=== PATIENT | female | born 1990 | race Caucasian/White ===

== ENCOUNTER 2021-01-02 16:49 | Emergency (ER) | payer BC ==
[2021-01-02 17:23] LABS: Appearance,Urine Clear (Clear); Bilirubin,Urine Negative (Negative); Blood,Urine Negative (Negative); Color,Urine Colorless; Glucose,Urine (UA) Negative (Negative); Ketones,Urine Negative (Negative); Leukocyte Esterase,Urine Negative (Negative); Nitrite,Urine Negative (Negative); PH, Urine 6.5 (5.0-8.0); Protein,Urine Negative (Negative); Specific Gravity,Urine 1.003 (1.001-1.035); Urobilinogen,Urine <2.0 mg/dL (<2.0)
[2021-01-02 17:54] LABS: Basophils % (A) 0 %; Eosinophils # (A) 0.7 k/uL (0-0.7); Eosinophils % (A) 7 %; HCT 40.1 % (34.0-46.0); HGB 14.3 gm/dL (11.4-16.0); Lymphocytes # (A) 2.2 k/uL (1.0-4.8); Lymphocytes % (A) 22 %; MCH 30.2 pg (25.0-35.0); MCHC 35.6 g/dL (31.0-37.0); MCV 84.9 fL (80.0-100.0); Mean Platelet Volume 7.2; Monocytes # (A) 0.5 k/uL (0-1.0); Monocytes % (A) 5 %; Neutrophils # (A) 6.5 k/uL (1.3-7.7); Neutrophils % (A) 65 %; Platelet Count 358 k/uL (150-450); RBC 4.72 m/uL (3.80-5.40); RDW 12.2 % (11.5-15.5)
--- NOTE | 2021-01-02 18:02 | US ---
EXAMINATION TYPE: US OB >= 14 wk fetus DATE OF EXAM: 01/02/2021 COMPARISON: None CLINICAL HISTORY: pain vaginal discharge/bleeding TECHNIQUE: Transabdominal (TA) GESTATIONAL AGE / DATING Physician Established: Not yet established Dates by LMP: (17 weeks/0 days) EDC: 06/12/21 Dates by First Scan: No previous this is first scan Dates by Current Scan: (16 weeks/3 days) EDC: 06/16/21 SURVEY IUP: Single PLACENTA: Posterior PREVIA: No Previa GONZALES: 11.5 cm Normal CERVICAL LENGTH (transabdominal: norm > 3.0cm): 3.6 cm BIOMETRY PRESENTATION: Breech LIE: Transverse with head maternal RT BPD: 3.3 cm 16 weeks / 3 days HC: 12.5 cm 16 weeks / 2 days AC: 9.9 cm 16 weeks / 0 days FL: 2.2 cm 16 weeks / 3 days ESTIMATED WEIGHT IN GRAMS: 149 grams ESTIMATED WEIGHT IN LBS/OZ: 0 lbs. 5 oz. WEIGHT PERCENTAGE BASED ON ESTABLISHED DATES: 8.2% HC/AC: 1.26 Normal FL/AC: 21.9 Normal HEART RATE: 154 bpm RHYTHM: Normal MATERNAL WALL MEASUREMENT: 4.2 cm from skin to anterior uterine wall (if exam limited due to body hab itus). IMPRESSION: Single viable intrauterine as described above.
--- NOTE | 2021-01-02 18:10 | ED ---
Female Urogenital HPI - General Chief complaint: Vaginal Bleeding Stated complaint: 17wks preg/bleeding Time Seen by Provider: 01/02/21 17:02 Source: patient Mode of arrival: ambulatory Limitations: no limitations - History of Present Illness Initial comments: 30-year-old female presenting to the emergency department today for chief complaint of vaginal bleeding in . Patient states she was just having normal sex with her when she developed vaginal bleeding after. She states it has now stopped but it made her very scared. Patient denies any cramping or abdominal pain. Patient denies any heavy bleeding, states it was a small amount of bright red blood. pt denies additional complaints. upon arrival pt appears anxious tearful. bedside US revealed movement/HR present. Last Menstrual Period: 09/05/20 - Related Data Allergies Allergy/AdvReac Type Severity Reaction Status Date / Time No Known Allergies Allergy Verified 01/02/21 17:00 Review of Systems ROS Statement: Those systems with pertinent positive or pertinent negative responses have been documented in the HPI. ROS Other: All systems not noted in ROS Statement are negative. Past Medical History Past Medical History: No Reported History History of Any Multi-Drug Resistant Organisms: None Reported Past Surgical History: Section Additional Past Surgical History / Comment(s): jaw surgery Past Psychological History: No Psychological Hx Reported Smoking Status: Never smoker Past Alcohol Use History: None Reported Past Drug Use History: None Reported General Exam - General Exam Comments Initial Comments: General: The patient is awake and alert, in no distress Eye: Pupils are equal, round and reactive to light, extra-ocular movements are intact. No nystagmus. There is normal conjunctiva bilaterally. No signs of icterus. Ears, nose, mouth and throat: There are moist mucous membranes and no oral lesions. Neck: The neck is supple, there is no tenderness or JVD. Cardiovascular: There is a regular rate and rhythm. No murmur, rub or gallop is appreciated. Respiratory: Lungs are clear to auscultation, respirations are non-labored, breath sounds are equal. No wheezes, stridor, rales, or rhonchi. Gastrointestinal: Soft, non-tender abdomen without masses or organomegaly noted. There is no rebound or guarding present. Refused: refused pelvic Musculoskeletal: Normal ROM, no tenderness. Strength 5/5. Sensation intact. Radial and Dp pulses equal bilaterally 2+. Neurological: A&O x 3. CN II-XII intact grossly, There are no obvious motor or sensory deficits. Coordination appears grossly intact. Speech is normal. Skin: Skin is warm and dry and no rashes or lesions are noted. Psychiatric: Cooperative, appropriate mood & affect, normal judgment. Limitations: no limitations Course Vital Signs 01/02/21 01/02/21 01/02/21 16:57 18:50 19:44 Temperature 98.1 F 98.2 F 98.0 F Pulse Rate 104 H 103 H 98 Respiratory 18 16 16 Rate Blood Pressure 145/75 133/90 134/73 O2 Sat by Pulse 100 100 98 Oximetry Medical Decision Making - Medical Decision Making Labs stable. US no abnormality. Pt B-. given Rhogam. Patient discharged with pelvic rest/lifting instruction and OBGYN f/u. pt agreeable. discharged dap pearing well. Refused pelvic. States bleeding has stopped Dr Soto agreeable to care plan and discharge. - Lab Data Result diagrams: 01/02/21 17:37 01/02/21 17:37 Lab Results 01/02/21 01/02/21 01/02/21 Range/Units 17:18 17:37 17:37 WBC 10.0 (3.8-10.6) k/uL RBC 4.72 (3.80-5.40) m/uL Hgb 14.3 (11.4-16.0) gm/dL Hct 40.1 (34.0-46.0) % MCV 84.9 (80.0-100.0) fL MCH 30.2 (25.0-35.0) pg MCHC 35.6 (31.0-37.0) g/dL RDW 12.2 (11.5-15.5) % Plt Count 358 (150-450) k/uL MPV 7.2 Neutrophils % 65 % Lymphocytes % 22 % Monocytes % 5 % Eosinophils % 7 % Basophils % 0 % Neutrophils # 6.5 (1.3-7.7) k/uL Lymphocytes # 2.2 (1.0-4.8) k/uL Monocytes # 0.5 (0-1.0) k/uL Eosinophils # 0.7 (0-0.7) k/uL Basophils # 0.0 (0-0.2) k/uL Sodium 137 (137-145) mmol/L Potassium 3.4 L (3.5-5.1) mmol/L Chloride 103 (98-107) mmol/L Carbon Dioxide 24 (22-30) mmol/L Anion Gap 10 mmol/L BUN 10 (7-17) mg/dL Creatinine 0.50 L (0.52-1.04) mg/dL Est GFR (CKD-EPI)AfAm >90 (>60 ml/min/1.73 sqM) Est GFR (CKD-EPI)NonAf >90 (>60 ml/min/1.73 sqM) Glucose 116 H (74-99) mg/dL Calcium 10.4 H (8.4-10.2) mg/dL Total Bilirubin 0.2 (0.2-1.3) mg/dL AST 20 (14-36) U/L ALT 17 (4-34) U/L Alkaline Phosphatase 58 (38-126) U/L Total Protein 7.8 (6.3-8.2) g/dL Albumin 4.3 (3.5-5.0) g/dL Urine Color Colorless Urine Appearance Clear (Clear) Urine pH 6.5 (5.0-8.0) Ur Specific [place] 1.003 (1.001-1.035) Urine Protein Negative (Negative) Urine Glucose (UA) Negative (Negative) Urine Ketones Negative (Negative) Urine Blood Negative (Negative) Urine Nitrite Negative (Negative) Urine Bilirubin Negative (Negative) Urine Urobilinogen <2.0 (<2.0) mg/dL Ur Leukocyte Esterase Negative (Negative) Blood Type Blood Type Confirm Blood Type Recheck Bld Type Recheck Status Antibody Screen Spec Expiration Date 01/02/21 01/02/21 Range/Units 17:40 17:45 WBC (3.8-10.6) k/uL RBC (3.80-5.40) m/uL Hgb (11.4-16.0) gm/dL Hct (34.0-46.0) % MCV (80.0-100.0) fL MCH (25.0-35.0) pg MCHC (31.0-37.0) g/dL RDW (11.5-15.5) % Plt Count (150-450) k/uL MPV Neutrophils % % Lymphocytes % % Monocytes % % Eosinophils % % Basophils % % Neutrophils # (1.3-7.7) k/uL Lymphocytes # (1.0-4.8) k/uL Monocytes # (0-1.0) k/uL Eosinophils # (0-0.7) k/uL Basophils # (0-0.2) k/uL Sodium (137-145) mmol/L Potassium (3.5-5.1) mmol/L Chloride (98-107) mmol/L Carbon Dioxide (22-30) mmol/L Anion Gap mmol/L BUN (7-17) mg/dL Creatinine (0.52-1.04) mg/dL Est GFR (CKD-EPI)AfAm (>60 ml/min/1.73 sqM) Est GFR (CKD-EPI)NonAf (>60 ml/min/1.73 sqM) Glucose (74-99) mg/dL Calcium (8.4-10.2) mg/dL Total Bilirubin (0.2-1.3) mg/dL AST (14-36) U/L ALT (4-34) U/L Alkaline Phosphatase (38-126) U/L Total Protein (6.3-8.2) g/dL Albumin (3.5-5.0) g/dL Urine Color Urine Appearance (Clear) Urine pH (5.0-8.0) Ur Specific [place] (1.001-1.035) Urine Protein (Negative) Urine Glucose (UA) (Negative) Urine Ketones (Negative) Urine Blood (Negative) Urine Nitrite (Negative) Urine Bilirubin (Negative) Urine Urobilinogen (<2.0) mg/dL Ur Leukocyte Esterase (Negative) Blood Type B Negative Blood Type Confirm B Negative Blood Type Recheck No Previous Record Bld Type Recheck Status CABO Indicated Antibody Screen NEGATIVE Spec Expiration Date 01/05/2021 - 2339 Disposition Clinical Impression: Vaginal bleeding during Disposition: HOME SELF-CARE Condition: Good Instructions (If sedation given, give patient instructions): Threatened Miscarriage (ED) Additional Instructions: Please use medication as discussed. Please follow-up with OBGYN this week. PELVIC REST-no sex, no lifting < 10lbs. Please return to emergency room if the symptoms increase or worsen or for any other concerns. Is patient prescribed a controlled substance at d/c from ED?: No Referrals: None,Stated [Primary Care Provider] - 1-2 days Time of Disposition: 18:27
[2021-01-02 18:11] LABS: ALT 17 U/L (4-34); AST 20 U/L (14-36); African American GFR (CKD) >90 (>60 ml/min/1.73 sqM); Albumin 4.3 g/dL (3.5-5.0); Alkaline Phosphatase 58 U/L (38-126); Anion Gap 10 mmol/L; Blood Urea Nitrogen 10 mg/dL (7-17); Calcium 10.4 mg/dL (8.4-10.2); Carbon Dioxide 24 mmol/L (22-30); Chloride 103 mmol/L (98-107); Glucose 116 mg/dL (74-99); Non-African American GFR(CKD) >90 (>60 ml/min/1.73 sqM); Potassium 3.4 mmol/L (3.5-5.1); Sodium 137 mmol/L (137-145); Total Bilirubin 0.2 mg/dL (0.2-1.3); Total Protein 7.8 g/dL (6.3-8.2)
[2021-01-02 18:51] VITALS: RESP 16
[2021-01-02] MEDS ORDERED: Rhogam IMMUNE GLOBULIN 1,500 UNIT/1 ML IM ONE (18:57)
[2021-01-02 19:45] VITALS: BP 134/73; PULSE 98; TEMP 98
== END 2021-01-02 19:44 | disposition home or self-care (01) ==
LOC: EC 16:49
DX: O20.9 Hemorrhage in early pregnancy, unspecified (principal); Z3A.16 16 weeks gestation of pregnancy
CPT/HCPCS: 36415; 86900; 86901; 80053; 85025; 86850; 81003; 76805; 99284; 96372; J2791

== ENCOUNTER 2021-05-09 09:25 | Outpatient (CLI) | payer BC ==
[2021-05-09 11:28] VITALS: BP 114/77; PULSE 108; RESP 16; TEMP 98.2
--- NOTE | 2021-06-19 13:16 | P.MSEPDOC ---
Presenting Problems - Arrival Data Date of Arrival on Unit: 05/09/21 Time of Arrival on Unit: 09:29 Mode of Transport: Ambulatory - Complaint OB-Reason for Admission/Chief Complaint: Other Comment: pt arrived c/o some vaginal bleeding this morning. pt states she had intercourse last night and had some bleeding . pt states its a small amt when she wipes and more pinkish and dark brown. pt denies any leaking of fluid Medical History - Information : 2 Para: 1 Term: 1 : 0 Abortions: Spontaneous or Elective: 0 Number of Living Children: 1 - Gestational Age Gestational Age by SARA (wks/days): 35 Weeks and 0 Days - History Complications: Prior Review of Systems - Review of Systems Constitutional: No problems Breast: No problems ENT: No problems Cardiovascular: No problems Respiratory: No problems Gastrointestinal: No problems Genitourinary: No problems Musculoskeletal: No problems Neurological: No problems Skin: No problems Vital Signs - Temperature Temperature: 98.2 F Temperature Source: Oral - Pulse Right Brachial Pulse Rate: 108 Pulse Assessment Method: Automatic Cuff - Respirations Respiratory Rate: 16 Oxygen Delivery Method: Room Air O2 Sat by Pulse Oximetry: 97 - Blood Pressure Right Arm Blood Pressure: 114/77 Blood Pressure Mean: 89 Blood Pressure Source: Automatic Cuff Medical Screen Scoring - Cervical Exam Membranes: Intact - Uterine Contractions Frequency From (mins): 0 Frequency To (mins): 0 - Assessment - Baby A Baseline FHR: 130 Heart Rate - NICHD Category: Category I (Normal) NST: Reactive Physician Notification - Physician Notified Physician Notified Date: 05/09/21 Physician Notified Time: 11:00 Physician: Dr Krause New Order Received: Yes - Notification Comment Comment: may discharge to home with instructions and have pt keep scheduled appointment on 05/12/2021 and have pt on pelvic rest Maternal Triage Index - Non-Urgent/Priority 4 Non-Urgent Priority 4: Yes Criteria Met for Priority 4: pt 35 weeks hx of c/section . arrived c/o some bleeding affter having intercourse last night. pt arrived with brownish discharge and no active bleeding. vitals wnl and reactive NST. cervix closed Disposition - Disposition OB Disposition: Transfer to other dept./facility Discharge Date: 05/09/21 Discharge Time: 11:10 I agree with the RN Medical Screening Exam: Yes Case reviewed; plan agreed upon as documented in EMR&OBIX.: Yes Diagnosis: RELATED CONDITIONS, UNSPECIFIED, THIRD TRIMESTER
== END 2021-05-09 11:10 | disposition home or self-care (01) ==
LOC: FBPOP 09:25
PROVIDERS: ATTEND Obstetrics & Gynecology Obstetrics
DX: O46.93 Antepartum hemorrhage, unspecified, third trimester (principal); Z3A.35 35 weeks gestation of pregnancy
CPT/HCPCS: 59025; 99213

== ENCOUNTER 2021-05-17 10:54 | Outpatient (CLI) | payer BC ==
[2021-05-17 12:31] VITALS: BP 139/81; PULSE 103; RESP 18; TEMP 97.5
--- NOTE | 2021-07-10 09:44 | P.MSEPDOC ---
Presenting Problems - Arrival Data Date of Arrival on Unit: 05/17/21 Time of Arrival on Unit: 10:54 Mode of Transport: Ambulatory - Complaint OB-Reason for Admission/Chief Complaint: Possible Onset of Labor Comment: irregular contractions since last night and small blood clot Medical History - Information : 2 Para: 1 Term: 1 : 0 Abortions: Spontaneous or Elective: 0 Number of Living Children: 1 - Gestational Age Gestational Age by SARA (wks/days): 36 Weeks and 1 Days Review of Systems - Review of Systems Constitutional: No problems Breast: No problems ENT: No problems Cardiovascular: No problems Respiratory: No problems Gastrointestinal: No problems Genitourinary: No problems Musculoskeletal: No problems Neurological: No problems Skin: No problems Vital Signs - Temperature Temperature: 97.5 F Temperature Source: Temporal Artery Scan - Pulse Right Pulse Oximetery Pulse Rate: 103 Pulse Assessment Method: Pulse Oximetry - Respirations Respiratory Rate: 18 Oxygen Delivery Method: Room Air O2 Sat by Pulse Oximetry: 96 - Blood Pressure Right Arm Blood Pressure: 139/81 Blood Pressure Mean: 100 Blood Pressure Source: Automatic Cuff Medical Screen Scoring - Cervical Exam Dilation (cm): 1 Effacement (%): 0 Station: -3 Membranes: Intact - Assessment - Baby A Baseline FHR: 125 Heart Rate - NICHD Category: Category I (Normal) NST: Reactive Physician Notification - Physician Notified Physician Notified Date: 05/17/21 Physician Notified Time: 11:43 Physician: Dr Krause New Order Received: Yes - Notification Comment Comment: order to recheck pt cervix after one hour, if no change, pt may be discharged Maternal Triage Index - Maternal Triage Index Presenting for scheduled procedure w/no complaint: No - Stat/Priority 1 Stat Priority 1: No - Urgent/Priority 2 Urgent Priority 2: No - Prompt/Priority 3 Prompt Priority 3: No - Non-Urgent/Priority 4 Non-Urgent Priority 4: Yes Criteria Met for Priority 4: irregular contractions, 36 1/7, repeat CS Disposition - Disposition OB Disposition: Discharge to home Discharge Date: 05/17/21 Discharge Time: 12:15 I agree with the RN Medical Screening Exam: Yes Physician's MSE Comment: Patient was not seen or examined by myself. Case reviewed; plan agreed upon as documented in EMR&OBIX.: Yes Diagnosis: FALSE LABOR BEFORE 37 COMPLETED WEEKS OF GEST, THIRD TRI
== END 2021-05-17 12:15 | disposition home or self-care (01) ==
LOC: FBPOP 10:54
PROVIDERS: ATTEND Obstetrics & Gynecology Obstetrics
DX: O47.03 False labor before 37 completed weeks of gestation, third trimester (principal); Z3A.36 36 weeks gestation of pregnancy
CPT/HCPCS: 59025; 99213

== ENCOUNTER 2021-05-18 10:00 | Inpatient (IN) | payer BC ==
[2021-05-18] MEDS ORDERED: CITRIC ACID-SODIUM CITRATE 15 ML CUP PO ONE (10:32)
[2021-05-18 10:49] LABS: Basophils % (A) 0 %; Eosinophils # (A) 0.4 k/uL (0-0.7); Eosinophils % (A) 4 %; HCT 37.8 % (34.0-46.0); HGB 12.8 gm/dL (11.4-16.0); Lymphocytes # (A) 1.2 k/uL (1.0-4.8); Lymphocytes % (A) 12 %; MCHC 33.9 g/dL (31.0-37.0); MCV 88.5 fL (80.0-100.0); Mean Platelet Volume 8.1; Monocytes # (A) 0.4 k/uL (0-1.0); Monocytes % (A) 4 %; Neutrophils # (A) 7.9 k/uL (1.3-7.7); Neutrophils % (A) 79 %; Platelet Count 335 k/uL (150-450); RBC 4.27 m/uL (3.80-5.40); RDW 12.8 % (11.5-15.5)
[2021-05-18] MEDS: LACTATED RINGERS 1,000 ML IV ONE ×2 (10:59→12:02)
[2021-05-18] MEDS ORDERED: OXYTOCIN 10 UNIT/ML 1 ML VIAL ONE (12:20)
[2021-05-18] MEDS ORDERED: OXYTOCIN 30 UNITS/500 ML NS BAG IV ONE (12:20)
[2021-05-18] MEDS ORDERED: ePHEDrine SULFATE/0.9% NACL/PF 50 MG/5 ML SYRINGE IV ONE (12:20)
[2021-05-18] MEDS ORDERED: PHENYLEPHRINE-0.9% NACL SYG 1,000 MCG/10 ML SYRINGE ONE (12:20)
[2021-05-18] MEDS ORDERED: MORPHINE SULFATE (PF) 0.3 MG/0.3 ML SYR ONE (12:20)
[2021-05-18] MEDS ORDERED: ONDANSETRON 4 MG/2 ML VIAL ONE (12:20)
[2021-05-18] MEDS ORDERED: NALBUPHINE 10 MG/ML (1 ML AMP) ONE (12:20)
[2021-05-18] MEDS ORDERED: diphenhydrAMINE 50 MG/ML 1 ML VIAL IVP PRN ×2 (13:20)
[2021-05-18] MEDS ORDERED: METOCLOPRAMIDE 5 MG/ML 2 ML VIAL IVP PRN (13:20)
[2021-05-18] MEDS ORDERED: ONDANSETRON 4 MG/2 ML VIAL IVP PRN (13:20)
[2021-05-18] MEDS ORDERED: OXYTOCIN 10 UNIT/ML 1 ML VIAL IM ONE (13:20)
[2021-05-18] MEDS ORDERED: ZOLPIDEM 5 MG TAB PO PRN (13:20)
[2021-05-18] MEDS ORDERED: SIMETHICONE 80 MG CHEWABLE PO PRN (13:20)
[2021-05-18] MEDS ORDERED: NALOXONE 0.4 MG/ML 1 ML VIAL IV PRN (13:20)
[2021-05-18] MEDS ORDERED: diphenhydrAMINE 25 MG CAP PO PRN (13:20)
[2021-05-18] MEDS ORDERED: diphenhydrAMINE 50 MG CAP PO PRN (13:20)
--- NOTE | 2021-05-18 13:25 | P.HPOB ---
History of Present Illness H&P Date: 05/18/21 Chief Complaint: IUP at 36 and 2/7, labor, history of 1 This is a 22-year-old at 36-2/7 weeks, estimated due date 06/13. Patient presents to the office for routine visit. Patient states she was seen on labor and delivery yesterday with complaints of irregular contractions was noted to be closed. Patient states she contracted through the evening and was up most of the night jose every 10-15 minutes. On cervical exam she was 4/70/-3 station, fetus was noted to be high in the pelvis. Patient was tearful with contractions. Patient has been receiving routine care which is been essentially uncomplicated, her last was for macrosomia. On bloodwork this patient is noted to be negative, rubella immune, hepatitis B surface antigen negative, HIV negative, RPR nonreactive, group beta strep cultures are positive. Review of Systems Constitutional: Denies chills, Denies fatigue, Denies fever Ears, nose, mouth and throat: Denies headache Cardiovascular: Reports leg edema Gastrointestinal: Denies constipation, Denies diarrhea, Denies nausea, Denies vomiting Genitourinary: Reports Past Medical History Past Medical History: No Reported History History of Any Multi-Drug Resistant Organisms: None Reported Past Surgical History: Section Additional Past Surgical History / Comment(s): jaw surgery ,screws in lower jaw Past Anesthesia/Blood Transfusion Reactions: Previous Problems w/ Anesthesia Additional Past Anesthesia/Blood Transfusion Reaction / Comment(s): "difficulty waking up" was in ICU for a couple days as a child. Past Psychological History: No Psychological Hx Reported Smoking Status: Never smoker Past Alcohol Use History: None Reported Past Drug Use History: None Reported - Past Family History Father Family Medical History: No Reported History Medications and Allergies Home Medications Medication Instructions Recorded Confirmed Type Pnv No.95/Ferrous Fum/Folic AC 1 tab DAILY 05/09/21 05/18/21 History [ Multivitamin Tablet] Allergies Allergy/AdvReac Type Severity Reaction Status Date / Time No Known Allergies Allergy Verified 05/18/21 10:29 Exam Osteopathic Statement: *. No significant issues noted on an osteopathic structural exam other than those noted in the History and Physical/Consult. 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 Cervical exam is deferred as she was examined in the office and found to be 4 cm after being closed yesterday. heart tones were noted to be category 1 and she is jose irregularly. Results Result Diagrams: 05/18/21 10:30 Abnormal Lab Results - Last 24 Hours (Table) 05/18/21 Range/Units 10:30 Neutrophils # 7.9 H (1.3-7.7) k/uL Assessment and Plan (1) 36 to 37 weeks gestation of Current Visit: Yes Status: Acute Code(s): [id number] - SNOMED Code(s): 171793470 (2) H/O section Current Visit: Yes Status: Acute Code(s): Z98.891 - HISTORY OF UTERINE SCAR FROM PREVIOUS SURGERY SNOMED Code(s): 759839195 (3) Positive GBS test Current Visit: Yes Status: Acute Code(s): B95.1 - STREPTOCOCCUS, GROUP B, CAUSING DISEASES [facility]SD [facility] SNOMED Code(s): 628557636 Plan: This is a 22-year-old at 36-2/7 weeks that presents for repeat section secondary to labor. Patient is admitted and will be taken back to the operating suite for repeat section. Procedures reviewed questions are answered. Anesthesia is notified.
[2021-05-18] MEDS ORDERED: IBUPROFEN IV 800 MG in SODIUM CHLORIDE 0.9% 250 ML IV SCH (13:30)
[2021-05-18] MEDS ORDERED: OXYTOCIN 30 UNITS/500 ML NS 30 UNIT in SALINE 1 500ML.BAG IV SCH (13:30)
[2021-05-18] MEDS: ACETAMINOPHEN IV (For NPO) 1,000 MG in EMPTY BAG 1 BAG IVPB SCH ×2 (14:05→22:25)
[2021-05-18] MEDS: LACTATED RINGERS 1,000 ML IV SCH (16:44)
[2021-05-18] MEDS: SENNOSIDES-DOCUSATE SODIUM 1 EACH TAB PO SCH (22:13)
[2021-05-18] MEDS ORDERED: Rhogam IMMUNE GLOBULIN 1,500 UNIT/1 ML IM ONE (22:14)
[2021-05-19] MEDS: LACTATED RINGERS 1,000 ML IV SCH (02:17)
[2021-05-19] MEDS: IBUPROFEN 600 MG TAB PO SCH ×4 (04:12→18:41)
[2021-05-19] MEDS: SENNOSIDES-DOCUSATE SODIUM 1 EACH TAB PO SCH ×2 (07:44→20:30)
--- NOTE | 2021-05-19 08:33 | P.PN ---
Progress Note - Text Date: 05/19/2021 Time: 07:12 The patient is status post section Vital signs stable VAS: 0-10 Patient has no complaints of pain. The patient incurred some minimal itching yesterday, this itching is now subsiding. Pain meds to be managed by service.
[2021-05-19 09:28] LABS: Basophils % (A) 0 %; Eosinophils # (A) 0.4 k/uL (0-0.7); Eosinophils % (A) 4 %; HCT 35.8 % (34.0-46.0); HGB 11.9 gm/dL (11.4-16.0); Lymphocytes # (A) 1.1 k/uL (1.0-4.8); Lymphocytes % (A) 11 %; MCHC 33.2 g/dL (31.0-37.0); MCV 90.3 fL (80.0-100.0); Mean Platelet Volume 8.4; Monocytes # (A) 0.4 k/uL (0-1.0); Monocytes % (A) 4 %; Neutrophils # (A) 8.6 k/uL (1.3-7.7); Neutrophils % (A) 81 %; Platelet Count 284 k/uL (150-450); RBC 3.97 m/uL (3.80-5.40); WBC 10.7 k/uL (3.8-10.6)
[2021-05-19] MEDS: ACETAMINOPHEN TAB 500 MG TAB PO PRN ×2 (09:55→16:30)
--- NOTE | 2021-05-19 13:10 | P.PNOBGPC ---
Subjective - Subjective Principal diagnosis: Postop day 1 repeat section Interval history: Patient is doing well overall, patient is tearful as her remains in the nursery. Patient is ambulating and voiding without difficulty. She states her pain is well-controlled. Her lochia is minimal. She is pumping. Patient reports: Reports appetite normal, Reports voiding normally, Reports pain well controlled, Reports ambulating normally : doing well (In the nursery, on IV fluids) Objective - Vital Signs Latest vital signs: Vital Signs Temp Pulse Resp BP Pulse Ox 05/19/21 11:37 98.3 F 73 18 133/72 05/19/21 08:10 133/83 05/19/21 08:00 97.4 F L 85 18 143/92 100 05/19/21 04:00 97.8 F 93 16 115/66 99 05/19/21 00:00 97.9 F 68 16 126/76 99 05/18/21 20:00 98.0 F 74 16 132/84 99 05/18/21 16:00 97 F L 80 16 131/84 100 05/18/21 15:23 96.2 F L 66 16 127/71 100 05/18/21 14:53 76 16 131/84 100 05/18/21 14:23 70 16 135/67 97 05/18/21 14:08 90 16 126/75 98 05/18/21 13:53 92 16 126/71 99 05/18/21 13:38 83 16 123/68 99 05/18/21 13:23 96.4 F L 77 16 127/68 99 Intake and Output 05/18/21 05/19/21 05/19/21 22:59 06:59 14:59 Output Total 1240 475 Balance -1240 -475 Output: Urine 1240 475 Uretheral (Modi) 400 Other: Voiding Method Toilet # Voids 1 2 1 - Exam Extremities: Present: normal, edema Incision: Present: normal, dry, intact Uterus: Present: normal, firm - Labs Labs: Abnormal Lab Results - Last 24 Hours (Table) 05/19/21 Range/Units 08:44 WBC 10.7 H (3.8-10.6) k/uL Neutrophils # 8.6 H (1.3-7.7) k/uL Assessment and Plan (1) 36 to 37 weeks gestation of Current Visit: Yes Status: Acute Code(s): [id number] - SNOMED Code(s): 850772829 (2) H/O section Current Visit: Yes Status: Acute Code(s): Z98.891 - HISTORY OF UTERINE SCAR FROM PREVIOUS SURGERY SNOMED Code(s): 395993090 (3) Positive GBS test Current Visit: Yes Status: Acute Code(s): B95.1 - STREPTOCOCCUS, GROUP B, [facility] SNOM[facility] Code(s): 528482227 (4) S/P section Current Visit: Yes Status: Acute Code(s): Z98.891 - HISTORY OF UTERINE SCAR FROM PREVIOUS SURGERY SNOMED Code(s): 693356215 Plan: Patient is doing well postoperatively. We'll plan to continue routine postoperative care. I anticipate this patient will want to stay until infant is discharged
[2021-05-20] MEDS: IBUPROFEN 600 MG TAB PO SCH ×4 (00:19→19:47)
[2021-05-20] MEDS: SENNOSIDES-DOCUSATE SODIUM 1 EACH TAB PO SCH ×2 (08:13→19:47)
--- NOTE | 2021-05-20 11:02 | P.PNOBGPC ---
Subjective - Subjective Principal diagnosis: POD 2 LTCS Interval history: Patient is doing well postoperatively, pain is well controlled. she is ambulating and voiding without difficulty. she is tolerating a regular diet without nausea or vomitting. baby remain in the nursery off oxygen. Patient reports: Reports appetite normal, Reports voiding normally, Reports pain well controlled, Reports ambulating normally [place]: doing well Objective - Vital Signs Latest vital signs: Vital Signs Temp Pulse Resp BP Pulse Ox 05/20/21 08:00 98.3 F 84 16 117/83 05/20/21 00:00 98.3 F 79 16 122/65 99 05/19/21 16:00 96.6 F L 85 18 114/69 97 05/19/21 11:37 98.3 F 73 18 133/72 Intake and Output 05/19/21 05/20/21 05/20/21 22:59 06:59 14:59 Other: # Voids 2 1 - Exam Extremities: Present: normal, edema Abdomen: Present: normal appearance, soft Incision: Present: normal, dry Uterus: Present: normal, firm Assessment and Plan (1) 36 to 37 weeks gestation of Current Visit: Yes Status: Acute Code(s): [id number] - SNOMED Code(s): 977813625 (2) H/O section Current Visit: Yes Status: Acute Code(s): Z98.891 - HISTORY OF UTERINE SCAR FROM PREVIOUS SURGERY SNOMED Code(s): 225425869 (3) Positive GBS test Current Visit: Yes Status: Acute Code(s): B95.1 - STREPTOCOCCUS, GROUP B, CAUSING DISEASES [facility]SD [facility] SNOMED Code(s): 284577179 (4) S/P section Current Visit: Yes Status: Acute Code(s): Z98.891 - HISTORY OF UTERINE SCAR FROM PREVIOUS SURGERY SNOMED Code(s): 301626970 Plan: Patient is doing well postoperatively. Continue postoperative care.
[2021-05-20] MEDS: ACETAMINOPHEN TAB 500 MG TAB PO PRN (16:03)
[2021-05-21] MEDS: ACETAMINOPHEN TAB 500 MG TAB PO PRN ×3 (00:23→18:49)
[2021-05-21] MEDS: IBUPROFEN 600 MG TAB PO SCH ×5 (04:50→22:06)
--- NOTE | 2021-05-21 10:37 | P.PNOBGPC ---
Subjective - Subjective Principal diagnosis: Postop day 3, repeat section Interval history: Patient is doing well. She a billing and voiding without difficulty concerns. patient remains in the hospital as her infant is in the nursery working on feeding issues. Patient reports: Reports appetite normal, Reports voiding normally, Reports pain well controlled, Reports ambulating normally [place]: doing well (In the nursery) Objective - Vital Signs Latest vital signs: Vital Signs Temp Pulse Resp BP 05/21/21 08:00 97.9 F 82 16 132/80 05/21/21 00:00 98.5 F 80 16 127/79 05/20/21 20:00 98.6 F 80 16 138/85 05/20/21 16:00 98.4 F 78 16 115/76 Intake and Output 05/20/21 05/21/21 05/21/21 22:59 06:59 14:59 Other: # Voids 2 1 # Bowel Movements 3 - Exam Extremities: Present: normal, edema Abdomen: Present: normal appearance Incision: Present: normal, dry, intact Uterus: Present: normal Assessment and Plan (1) 36 to 37 weeks gestation of Current Visit: Yes Status: Acute Code(s): [id number] - SNOMED Code(s): 977625091 (2) H/O section Current Visit: Yes Status: Acute Code(s): Z98.891 - HISTORY OF UTERINE SCAR FROM PREVIOUS SURGERY SNOMED Code(s): 978145674 (3) Positive GBS test Current Visit: Yes Status: Acute Code(s): B95.1 - STREPTOCOCCUS, GROUP B, CAUSING DISEASES CLASSD [facility] SNOMED Code(s): 771804222 (4) S/P section Current Visit: Yes Status: Acute Code(s): Z98.891 - HISTORY OF UTERINE SCAR FROM PREVIOUS SURGERY SNOMED Code(s): 334847379 Plan: Patient continues to do well postoperatively, no concerns. Continue current plan.
[2021-05-21] MEDS: SENNOSIDES-DOCUSATE SODIUM 1 EACH TAB PO SCH ×2 (15:39→20:59)
[2021-05-22] MEDS: ACETAMINOPHEN TAB 500 MG TAB PO PRN ×3 (02:52→18:51)
[2021-05-22] MEDS: IBUPROFEN 600 MG TAB PO SCH ×2 (04:54→13:30)
[2021-05-22 08:23] VITALS: RESP 16
--- NOTE | 2021-05-22 11:10 | P.DS ---
Providers Date of admission: 05/18/21 10:00 Expected date of discharge: 05/22/21 Attending physician: Angy Krause Primary care physician: Stated None - Discharge Diagnosis(es) (1) S/P section Current Visit: Yes Status: Acute Hospital Course: The patient is a 22-year-old 2 para 1001 admitted at 36-2/7 weeks by good dating parameters. She presents to the office for routine visit with complaints of recent contractions and was found to have a cervical exam of 4 synovators of dilation, 70% effacement with vertex in presentation at -3 station. She was sent to labor and delivery with the diagnosis of labor and a history of her previous section for which the plan was for repeat. She was taken to the operating room where she was delivered of a viable 7 lbs. 4 oz. baby boy with Apgars of 5 at 1 minute 7 at 5 minutes and 7 at 10 minutes. Delivery of the head was somewhat difficult secondary to the head not being engaged in the pelvis with a relatively thick lower uterine segment despite labor. Her post operative and course has been unremarkable vital signs remaining stable and her temperature has been afebrile throughout. Her infant remains in the special care nursery for ongoing treatment primarily for issues of prematurity. The patient therefore remained in the hospital until postoperative and day #4 at which time she was deemed stable for discharge and was discharged home to follow-up in the office in 2 weeks for an incision check and 6 weeks routinely. Discharge instructions included calling for any significantly increased bleeding or foul-smelling lochia, significantly increased fever abdominal pain, perineal complaints, breast complaints, incisional complaints, or anything else that concerned her. She is additionally instructed to have nothing in the vagina for at least 6 weeks time to include intercourse and to abstain from any heavy lifting over the same period of time. She is less instructed to do no driving until off of all pain medications or 2 weeks' time, whichever came first. She understood her instructions and agrees to follow up as noted above. Discharge medications included continue vitamins as she has opted to breast-feed. She was otherwise to use [id number] analgesic pain medications as needed but was additionally p rovided with a prescription for Tylenol 3, 1-2 by mouth every 6 hours when necessary pain, #20 dispensed. Maternal blood type is B- and cord blood was sent for evaluation for the necessity of RhoGAM prior to discharge. Rubella status is immune. Discharge hemoglobin and hematocrit were 11.9 and 35.8 respectively. Procedures: #1. Repeat low transverse section Patient Condition at Discharge: Stable Plan - Discharge Summary New Discharge Prescriptions: No Action Pnv No.95/Ferrous Fum/Folic AC [ Multivitamin Tablet] 1 tab DAILY Discharge Medication List Pnv No.95/Ferrous Fum/Folic AC [ Multivitamin Tablet] 1 tab DAILY 05/09/21 [History] Follow up Appointment(s)/Referral(s): Angy Krause DO [Doctor of Osteopathic Medicine] - 2 Weeks Discharge Disposition: HOME SELF-CARE
[2021-05-22 16:24] VITALS: BP 124/83; PULSE 78; TEMP 98.1
[2021-05-22] MEDS: SENNOSIDES-DOCUSATE SODIUM 1 EACH TAB PO SCH (16:29)
== END 2021-05-22 19:00 | disposition home or self-care (01) | DRG 788 ==
LOC: 4FBP 10:00
PROVIDERS: ADMIT Obstetrics & Gynecology Obstetrics; ATTEND Obstetrics & Gynecology Obstetrics
PROC: 3E0234Z Introduction of Serum, Toxoid and Vaccine into Muscle, Percutaneous Approach (ICD-10-PCS; 2021-05-18)
PROC: 10D00Z1 Extraction of Products of Conception, Low, Open Approach (ICD-10-PCS; principal; 2021-05-19)
DX: O34.211 Maternal care for low transverse scar from previous cesarean delivery (principal); O36.63X0 Maternal care for excessive fetal growth, third trimester, not applicable or unspecified; O99.824 Streptococcus B carrier state complicating childbirth; O99.73 Diseases of the skin and subcutaneous tissue complicating the puerperium; L29.9 Pruritus, unspecified; Z37.0 Single live birth; Z3A.37 37 weeks gestation of pregnancy
CPT/HCPCS: 85025; 85461; 86850; 86900; 86901